=== PATIENT | female | born 2000 | race African-American/Black ===

== ENCOUNTER 2021-10-27 13:16 | Emergency (ER) | payer OTHER ==
[~2021-10-27] VITALS: Ht 167.6 cm; Wt 56.7 kg
[2021-10-27 14:10] VITALS: BP 124/83
[2021-10-27] MEDS ORDERED: SODIUM CHLORIDE 0.9% 1,000 ML IV ONE (14:15)
[2021-10-27] MEDS ORDERED: ALUM & MAG HYDROX-SIMETH LIQ(MAALOX) 30 ML PO ONE (14:30)
[2021-10-27] MEDS ORDERED: LIDOCAINE VISCOUS 2% 15ML UD PO ONE (14:30)
[2021-10-27] MEDS ORDERED: DONNATAL 5ml ORAL Elix (BELLADONNA ALK-PHENOBARB) PO ONE (14:30)
== END 2021-10-27 15:58 | disposition home or self-care (01) ==
LOC: ER 13:16 → EDBD 13:16 → ER 15:58
DX: R10.13 Epigastric pain (principal); R11.2 Nausea with vomiting, unspecified; J45.909 Unspecified asthma, uncomplicated; F12.10 Cannabis abuse, uncomplicated